=== PATIENT | male | born 1965 | race Hispanic/Latino ===

== ENCOUNTER 2018-07-04 14:26 | Inpatient (IN) | payer OTHER, SELFPAY ==
[2018-07-04 14:47] LABS: Arterial Blood Carboxyhemoglob 0.8 % (0-1.5); Blood Gas Oxyhemoglobin 96.6 % (94-97); Blood O2 Saturation 98.2 % (92-98.5)
[2018-07-04] MEDS ORDERED: NA CHLORIDE 0.9% 1,000 ML ONE (14:47)
[2018-07-04] MEDS ORDERED: METHYLPREDNISOLONE 125 MG INJ ONE (14:47)
[2018-07-04 14:56] LABS: Absolute Monocytes 0.8 K/uL (0.1-1.3); Absolute Neutrophil 3.5 K/uL (1.8-8.0); Basophils % 0.5 % (0-1.3); Eosinophils % 3.2 % (0-4.4); Lymphocytes % 30.7 % (15.3-44.8); MCH 29.6 pg (27.0-35.0); MCV 88.2 fL (80-100); MPV 9.3 fL (7.6-11.3); Monocytes % 11.6 % (3.3-12.3)
[2018-07-04 15:20] LABS: ALT/SGPT 48 U/L (12-78); AST/SGOT 20 U/L (15-37); Albumin 3.8 g/dL (3.4-5.0); Alkaline Phosphatase 115 U/L (45-117); BUN Blood Urea Nitrogen 18 mg/dL (7-18); Bicarbonate 28 mmol/L (21-32); Bilirubin Direct 0.1 mg/dL (0-0.2); Bilirubin Total 0.4 mg/dL (0.2-1.0); Glucose Level 139 mg/dL (74-106); Magnesium 2.2 mg/dL (1.8-2.4); NT PRO-BNP 33 pg/mL (<125); Potassium 4.2 mmol/L (3.5-5.1); Protein, Total 7.6 g/dL (6.4-8.2); Sodium Level 138 mmol/L (136-145); Troponin (Emerg Dept Use Only) < 0.02 ng/mL (0.0-0.045)
--- NOTE | 2018-07-04 15:23 | RAD REPORT ---
EXAM DESCRIPTION: Rika Single View07/04/2018 3:02 pm CLINICAL HISTORY: phosgene exposure/cough COMPARISON: none FINDINGS: The lungs appear clear of acute infiltrate. The heart is normal size IMPRESSION: No acute abnormalities displayed
--- NOTE | 2018-07-04 16:07 | ER ---
Nurse's Notes [facility] Name: Seth Jacobsen Age: 53 yrs Sex: Male : 1965 Arrival Date: 07/04/2018 Time: 14:32 Bed 2 Private MD: Diagnosis: Contact with and (suspected ) exposure to other hazardous substances-phosgene Presentation: 07/04 14:24 Presenting complaint: EMS states: pt was wearing a SCBA while at work and was exposed sv to Phosgene, pt took off the SBCA before they went to get decontaminated. Pt was decontaminated for 30 minutes and clothing removed. Pt had a positive color change of 150-300 ppm/min. Pt was placed on CPAP, BP 163/96 HR-75m RR-12, 100% CPAP. Transition of care: patient was not received from another setting of care. Onset of symptoms. Onset of symptoms was July 04, 2018 at 13:15. Risk Assessment: Do you want to hurt yourself or someone else? Patient reports no desire to harm self or others. Initial Sepsis Screen: Does the patient meet any 2 criteria? No. Patient's initial sepsis screen is negative. Does the patient have a suspected source of infection? No. Patient's initial sepsis screen is negative. Care prior to arrival: decontamination. 14:24 Method Of Arrival: EMS: [facility] 14:24 Acuity: TATIANA 2 sv Triage Assessment: 14:24 General: Appears in no apparent distress. comfortable, well developed, Pt currently in sv paper gown placed after decontamination.. Behavior is calm, cooperative, appropriate for age. Pain: Denies pain. EENT: Oral mucosa is moist. Throat is clear. Neuro: Level of Consciousness is awake, alert, obeys commands, Oriented to person, place, time, situation, Moves all extremities. Full function Speech is normal. Cardiovascular: Heart tones S1 S2 present Patient's skin is warm and dry. Pulses are 3+ in right radial artery and left radial artery Rhythm is sinus rhythm. Respiratory: Airway is patent Respiratory effort is even, unlabored, Respiratory pattern is regular, symmetrical, Breath sounds are clear bilaterally. GI: No signs and/or symptoms were reported involving the gastrointestinal system. : No signs and/or symptoms were reported regarding the genitourinary system. Derm: Skin is pink, warm \T\ dry. Musculoskeletal: No signs and/or symptoms reported regarding the musculoskeletal system. Historical: - Allergies: 14:38 PENICILLINS; sv - Home Meds: 14:38 None [Active]; sv - PMHx: 14:38 None; sv - Immunization history:: Adult Immunizations up to date. - Social history:: Smoking status: Patient/guardian denies using tobacco. - Family history:: not pertinent. - Ebola Screening: : No symptoms or risks identified at this time. Screenin:57 Abuse screen: Denies threats or abuse. Denies injuries from another. Nutritional sv screening: No deficits noted. Tuberculosis screening: No symptoms or risk factors identified. Fall Risk None identified. Assessment: 14:55 Reassessment: Patient appears in no apparent distress at this time. No changes from sv previously documented assessment. Patient and/or family updated on plan of care and expected duration. Pain level reassessed. Patient is alert, oriented x 3, equal unlabored respirations, skin warm/dry/pink. 15:05 Reassessment: Pt placed on BIPAP by Martha RUDD. sv 15:20 Reassessment: Patient appears in no apparent distress at this time. No changes from sv previously documented assessment. Patient and/or family updated on plan of care and expected duration. Pain level reassessed. Patient is alert, oriented x 3, equal unlabored respirations, skin warm/dry/pink. 16:10 Reassessment: Patient appears in no apparent distress at this time. No changes from sv previously documented assessment. Patient and/or family updated on plan of care and expected duration. Pain level reassessed. Patient is alert, oriented x 3, equal unlabored respirations, skin warm/dry/pink. 17:30 Reassessment: Patient appears in no apparent distress at this time. No changes from sv previously documented assessment. Patient and/or family updated on plan of care and expected duration. Pain level reassessed. Patient is alert, oriented x 3, equal unlabored respirations, skin warm/dry/pink. 17:45 Reassessment: Pt given food tray. sv 18:10 Reassessment: Patient appears in no apparent distress at this time. No changes from sv previously documented assessment. Patient and/or family updated on plan of care and expected duration. Pain level reassessed. Patient is alert, oriented x 3, equal unlabored respirations, skin warm/dry/pink. 19:41 Reassessment: Patient and/or family updated on plan of care and expected duration. Pain bb level reassessed. Patient is alert, oriented x 3, equal unlabored respirations, skin warm/dry/pink. report called to Ruchi ENGLAND for ICU bed 7 (overflow). 20:29 Reassessment: Patient appears in no apparent distress at this time. Patient and/or tl2 family updated on plan of care and expected duration. Pain level reassessed. Patient is alert, oriented x 3, equal unlabored respirations, skin warm/dry/pink. pt stable and ready for transport to unit. Vital Signs: 14:38 BP 164 / 98; Pulse 76; Resp 19; Temp 96.8(TE); Pulse Ox 99% on R/A; Weight 107.5 kg; sv Height 5 ft. 6 in. (167.64 cm); Pain 0/10; 15:11 BP 131 / 88; Pulse 72 MON; Resp 19; Pulse Ox 100% on BiPAP; sv 15:33 BP 129 / 96; Pulse 66; Resp 21; Pulse Ox 99% on BiPAP; jb1 16:10 BP 128 / 85; Pulse 69; Resp 17; Pulse Ox 100% on BiPAP; sv 16:34 BP 144 / 79; Pulse 69; Resp 13; Pulse Ox 98% on R/A; sv 17:00 BP 145 / 81; Pulse 73; Resp 20; Pulse Ox 98% on R/A; sv 18:07 BP 136 / 91; Pulse 77 MON; Resp 22; Pulse Ox 97% on R/A; sv 18:35 BP 167 / 93; Pulse 92; Resp 21; Pulse Ox 96% on R/A; sv 19:41 BP 141 / 77; Pulse 78; Resp 20 S; Pulse Ox 94% on R/A; bb 14:38 Body Mass Index 38.25 (107.50 kg, 167.64 cm) sv 15:11 Sinus Rhythm sv 18:07 Sinus Rhythm sv ED Course: 14:32 Patient arrived in ED. sv 14:33 Chidi Gaxiola MD is Attending Physician. shailesh 14:37 Triage completed. sv 14:38 Arm band placed on Patient placed in an exam room, on a stretcher. sv 14:41 EKG done, by cable splicing technician. reviewed by Chidi Gaxiola MD. at1 14:45 Initial lab(s) drawn, by me, sent to lab. ABG drawn. by RT staff, on room air. Inserted sv saline lock: 20 gauge in left antecubital area, using aseptic technique. Blood collected. Flushed left antecubital with 5 ml normal saline. 14:50 Patient has correct armband on for positive identification. Placed in gown. Bed in low sv position. Side rails up X2. nuclear monitoring technician on. Pulse ox on. NIBP on. Door closed. Warm blanket given. Head of bed elevated. 15:03 XRAY Chest (1 view) In Process Unspecified. EDMS 15:04 Pat Bains, TOMÁS is Primary Nurse. sv 15:10 BIPAP Sent. sv 17:17 Jennifer Rodriguez MD is Hospitalizing Provider. shailesh 19:07 Report given to Ciarra ENGLAND and Armida ENGLAND. sv 19:08 Primary Nurse role handed off by Pat Bains RN sv 19:42 No provider procedures requiring assistance completed. Patient admitted, IV remains in bb place. Administered Medications: 14:55 Drug: NS 0.9% 1000 ml Route: IV; Rate: 125 ml/hr; Site: left antecubital; sv 19:43 Follow up: IV Status: Infusion continued upon admission bb 20:29 Follow up: IV Status: Infusion continued upon admission tl2 14:55 Drug: SOLU-Medrol 125 mg Route: IVP; Site: left antecubital; sv 15:10 Follow up: Response: No adverse reaction sv Outcome: 16:07 ER care complete, transfer ordered by . shailesh 17:19 Decision to Hospitalize by Provider. [facility] 19:42 Admitted to ICU accompanied by tech, via wheelchair, room 7, with chart, Report called bb to Ruchi ENGLAND 19:42 Condition: stable 19:42 Instructed on the need for admit. 20:30 Patient left the ED. tl2 Signatures: Dispatcher [employer] EDMS Humberto Worley jb1 Pat Bains, RN Chidi Wade MD MD cha Ballard, Brenda, RN RN bb Yamilka Russell, junior financial analyst EKG Tat1 Ciarra Jerome RN RN tl2
--- NOTE | 2018-07-04 16:07 | EDPHYS ---
Physician Documentation [facility] Name: Seth Jacobsen Age: 53 yrs Sex: Male : 1965 Arrival Date: 07/04/2018 Time: 14:32 Bed 2 Private MD: ED Physician Chidi Gaxiola HPI: 07/04 14:36 This 53 yrs old Male presents to ER via Unassigned with complaints of Gas shailesh Exposure. 14:36 The patient has shortness of breath at rest. Onset: The symptoms/episode began/occurred shailesh just prior to arrival. Duration: The symptoms no symptoms now. The patient's shortness of breath has no apparent modifying factors. phosgene exposure. Associated signs and symptoms: The patient has no apparent associated signs or symptoms. Severity of symptoms: At their worst the symptoms were very mild in the emergency department the symptoms are unchanged. The patient has not experienced similar symptoms in the past. Historical: - Allergies: 14:38 PENICILLINS; sv - Home Meds: 14:38 None [Active]; sv - PMHx: 14:38 None; sv - Immunization history:: Adult Immunizations up to date. - Social history:: Smoking status: Patient/guardian denies using tobacco. - Family history:: not pertinent. - Ebola Screening: : No symptoms or risks identified at this time. ROS: 14:36 Constitutional: Negative for fever, chills, and weight loss, Eyes: Negative for injury, shailesh pain, redness, and discharge, ENT: Negative for injury, pain, and discharge, Neck: Negative for injury, pain, and swelling, Cardiovascular: Negative for chest pain, palpitations, and edema, Respiratory: Negative for shortness of breath, cough, wheezing, and pleuritic chest pain, Abdomen/GI: Negative for abdominal pain, nausea, vomiting, diarrhea, and constipation, Back: Negative for injury and pain, : Negative for injury, bleeding, discharge, and swelling, MS/Extremity: Negative for injury and deformity, Skin: Negative for injury, rash, and discoloration, Neuro: Negative for headache, weakness, numbness, tingling, and seizure, Psych: Negative for depression, anxiety, suicide ideation, homicidal ideation, and hallucinations, Allergy/Immunology: Negative for hives, rash, and allergies, Endocrine: Negative for neck swelling, polydipsia, polyuria, polyphagia, and marked weight changes, Hematologic/Lymphatic: Negative for swollen nodes, abnormal bleeding, and unusual bruising. Exam: 14:38 Constitutional: This is a well developed, well nourished patient who is awake, alert, shailesh and in no acute distress. Head/Face: Normocephalic, atraumatic. Eyes: Pupils equal round and reactive to light, extra-ocular motions intact. Lids and lashes normal. Conjunctiva and sclera are non-icteric and not injected. Cornea within normal limits. Periorbital areas with no swelling, redness, or edema. ENT: Nares patent. No nasal discharge, no septal abnormalities noted. Tympanic membranes are normal and external auditory canals are clear. Oropharynx with no redness, swelling, or masses, exudates, or evidence of obstruction, uvula midline. Mucous membranes moist. Neck: Trachea midline, no thyromegaly or masses palpated, and no cervical lymphadenopathy. Supple, full range of motion without nuchal rigidity, or vertebral point tenderness. No Meningismus. Chest/axilla: Normal chest wall appearance and motion. Nontender with no deformity. No lesions are appreciated. Cardiovascular: Regular rate and rhythm with a normal S1 and S2. No gallops, murmurs, or rubs. Normal PMI, no JVD. No pulse deficits. Respiratory: Lungs have equal breath sounds bilaterally, clear to auscultation and percussion. No rales, rhonchi or wheezes noted. No increased work of breathing, no retractions or nasal flaring. Abdomen/GI: Soft, non-tender, with normal bowel sounds. No distension or tympany. No guarding or rebound. No evidence of tenderness throughout. Back: No spinal tenderness. No costovertebral tenderness. Full range of motion. Male : Normal genitalia with no discharge or lesions. Skin: Warm, dry with normal turgor. Normal color with no rashes, no lesions, and no evidence of cellulitis. MS/ Extremity: Pulses equal, no cyanosis. Neurovascular intact. Full, normal range of motion. Neuro: Awake and alert, GCS 15, oriented to person, place, time, and situation. Cranial nerves II-XII grossly intact. Motor strength 5/5 in all extremities. Sensory grossly intact. Cerebellar exam normal. Normal gait. Psych: Awake, alert, with orientation to person, place and time. Behavior, mood, and affect are within normal limits. Vital Signs: 14:38 BP 164 / 98; Pulse 76; Resp 19; Temp 96.8(TE); Pulse Ox 99% on R/A; Weight 107.5 kg; sv Height 5 ft. 6 in. (167.64 cm); Pain 0/10; 15:11 BP 131 / 88; Pulse 72 MON; Resp 19; Pulse Ox 100% on BiPAP; sv 15:33 BP 129 / 96; Pulse 66; Resp 21; Pulse Ox 99% on BiPAP; jb1 16:10 BP 128 / 85; Pulse 69; Resp 17; Pulse Ox 100% on BiPAP; sv 16:34 BP 144 / 79; Pulse 69; Resp 13; Pulse Ox 98% on R/A; sv 17:00 BP 145 / 81; Pulse 73; Resp 20; Pulse Ox 98% on R/A; sv 18:07 BP 136 / 91; Pulse 77 MON; Resp 22; Pulse Ox 97% on R/A; sv 18:35 BP 167 / 93; Pulse 92; Resp 21; Pulse Ox 96% on R/A; sv 19:41 BP 141 / 77; Pulse 78; Resp 20 S; Pulse Ox 94% on R/A; bb 14:38 Body Mass Index 38.25 (107.50 kg, 167.64 cm) sv 15:11 Sinus Rhythm sv 18:07 Sinus Rhythm sv MDM: 14:33 Patient medically screened. [facility] 14:37 Data reviewed: vital signs, nurses notes, lab test result(s), EKG, radiologic studies. [facility] 07/04 14:35 Order name: Basic Metabolic Panel; Complete Time: 16:07 [facility] 07/04 14:35 Order name: CBC with Diff; Complete Time: 16:07 [facility] 07/04 14:35 Order name: LFT's; Complete Time: 16:07 [facility] 07/04 14:35 Order name: Magnesium; Complete Time: 16:07 [facility] 07/04 14:35 Order name: NT PRO-BNP; Complete Time: 16:07 [facility] 07/04 14:35 Order name: PT-INR; Complete Time: 16:07 [facility] 07/04 14:35 Order name: Troponin (emerg Dept Use Only); Complete Time: 16:07 [facility] 07/04 14:35 Order name: XRAY Chest (1 view); Complete Time: 16:07 [facility] 07/04 14:35 Order name: EKG; Complete Time: 14:36 [facility] 07/04 14:35 Order name: ABG; Complete Time: 16:07 [facility] 07/04 14:35 Order name: BIPAP [facility] 07/04 17:23 Order name: CONS Physician Consult [facility] 07/04 14:35 Order name: Cardiac monitoring; Complete Time: 14:53 [facility] 07/04 14:35 Order name: EKG - Nurse/Tech; Complete Time: 14:53 [facility] 07/04 14:35 Order name: IV Saline Lock; Complete Time: 14:53 [facility] 07/04 14:35 Order name: Labs collected and sent; Complete Time: 14:53 [facility] 07/04 14:35 Order name: O2 Per Protocol; Complete Time: 14:53 [facility] 07/04 14:35 Order name: O2 Sat Monitoring; Complete Time: 14:53 [facility] Administered Medications: 14:55 Drug: NS 0.9% 1000 ml Route: IV; Rate: 125 ml/hr; Site: left antecubital; sv 19:43 Follow up: IV Status: Infusion continued upon admission bb 20:29 Follow up: IV Status: Infusion continued upon admission tl2 14:55 Drug: SOLU-Medrol 125 mg Route: IVP; Site: left antecubital; sv 15:10 Follow up: Response: No adverse reaction sv Disposition: 07/04/18 17:19 Hospitalization ordered by Jennifer Rodriguez for Observation. Preliminary diagnosis is Contact with and (suspected ) exposure to other hazardous substances - phosgene. - Bed requested for Intensive Care Unit. - Status is Observation. tl2 - Condition is Stable. - Problem is new. - Symptoms have improved. UTI on Admission? No Signatures: Dispatcher [employer] [facility] Pat Bains RN RN Maria A Jacobo RN Chidi Zuluaga MD MD cha Knox, Taylor RN RN tl2 Armida Melvin RN bb Corrections: (The following items were deleted from the chart) 16:14 16:07 07/04/2018 16:07 Transfer ordered to [facility]. shailesh Diagnosis is Contact with and (suspected ) exposure to other hazardous substances. Reason for transfer: Higher level of care. Accepting physician is to alto. Condition is Stable. Problem is new. Symptoms have improved. shailesh 17:12 16:14 07/04/2018 16:07 Transfer ordered to [facility]. shailesh Diagnosis is Contact with and (suspected ) exposure to other hazardous substances - phosgene. Reason for transfer: Higher level of care. Accepting physician is to alto. Condition is Stable. Problem is new. Symptoms have improved. shailesh 19:21 17:19 Hospitalization Ordered by Jennifer Rdoriguez MD for Observation. Preliminary diagnosis dw is Contact with and (suspected ) exposure to other hazardous substances - phosgene. Bed requested for Telemetry/MedSurg (observation). Status is Observation. Condition is Stable. Problem is new. Symptoms have improved. UTI on Admission? No. shailesh 20:30 19:21 07/04/2018 17:19 Hospitalization Ordered by Jennifer Rodriguez MD for Observation. tl2 Preliminary diagnosis is Contact with and (suspected ) exposure to other hazardous substances - phosgene. Bed requested for Intensive Care Unit. Status is Observation. Condition is Stable. Problem is new. Symptoms have improved. UTI on Admission? No. dw
--- NOTE | 2018-07-04 19:10 | P.HP ---
Certification for Inpatient Patient admitted to: Observation With expected LOS: <2 Midnights Practitioner: I am a practitioner with admitting privileges, knowledge of patient current condition, hospital course, and medical plan of care. 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 Per patient, still wearing masks and had limited exposure to the gas. On the way also to the hospital, he was placed on BiPAP and has not suffered any complications so far. He is to be admitted for observation for any delayed pulmonary edema or symptoms from the phosphogene exposure. At the time of my exam, he was alert and oriented x3 and was in no acute distress. Allergies Penicillins Allergy (Verified 07/04/18 18:29) Rash Review of Systems General: Unremarkable Eyes: Unremarkable ENT: Unremarkable Respiratory: Unremarkable Cardiovascular: Unremarkable Gastrointestinal: Unremarkable Genitourinary: Unremarkable Musculoskeletal: Unremarkable Integumentary: Unremarkable Neurological: Unremarkable Lymphatics: Unremarkable Physical Examination - Physical Exam General: Alert, In no apparent distress HEENT: Atraumatic, PERRLA, Mucous membr. moist/pink, EOMI, Sclerae nonicteric Neck: Supple, 2+ carotid pulse no bruit, No LAD, Without JVD or thyroid abnormality Respiratory: Clear to auscultation bilaterally, Normal air movement Cardiovascular: Regular rate/rhythm, Normal S1 S2 Gastrointestinal: Normal bowel sounds, No tenderness Musculoskeletal: No tenderness Integumentary: No rashes Neurological: Normal gait, Normal speech, Normal strength at 5/5 x4 extr, Normal tone, Normal affect Lymphatics: No axilla or inguinal lymphadenopathy - Studies Laboratory Data (last 24 hrs) 07/04/18 14:45: PT 11.8, INR 1.00 07/04/18 14:45: WBC 6.6, Hgb 15.1, Hct 45.0, Plt Count 171 07/04/18 14:45: Sodium 138, Potassium 4.2, BUN 18, Creatinine 0.90, Glucose 139 H, Magnesium 2.2, Total Bilirubin 0.4, AST 20, ALT 48, Alkaline Phosphatase 115 Assessment and Plan - Problems (Diagnosis) (1) Chemical exposure Current Visit: Yes Status: Acute Plan: Admitted for observation with tele. Monitor for any delayed pulmonary symptoms BiPAP if needed Pulmonary consulted. Discharge Plan: Home Plan to discharge in: 24 Hours - Advance Directives Does patient have a Living Will: No Does patient have a Durable POA for Healthcare: No
[2018-07-04] MEDS ORDERED: ACETAMINOPHEN 500 MG TAB PO PRN (19:41)
[2018-07-04] MEDS ORDERED: ONDANSETRON 4 MG/2 ML VIAL IV PRN (19:41)
[2018-07-04 23:06] VITALS: BMI 31.7
[2018-07-05 04:58] LABS: Absolute Lymphocytes (CBC) 1.3 K/uL (0.7-4.9); Absolute Monocytes 0.2 K/uL (0.1-1.3); Absolute Neutrophil 10.8 K/uL (1.8-8.0); Basophils % 0.1 % (0-1.3); Hematocrit 47.6 % (39.6-49.0); Lymphocytes % 10.4 % (15.3-44.8); MCH 29.8 pg (27.0-35.0); MCV 87.3 fL (80-100); MPV 9.6 fL (7.6-11.3); Monocytes % 1.7 % (3.3-12.3); RBC Red Blood Cell Count 5.45 M/uL (4.33-5.43)
[2018-07-05 05:13] LABS: BUN Blood Urea Nitrogen 15 mg/dL (7-18); Bicarbonate 24 mmol/L (21-32); Glucose Level 195 mg/dL (74-106); Phosphorus 2.4 mg/dL (2.5-4.9); Sodium Level 137 mmol/L (136-145)
[2018-07-05 05:25] LABS: Blood Morphology Comment NOT SEEN (NOT SEEN); Platelet Estimate ADEQ; Urine White Blood Cell Casts OK
[2018-07-05 05:50] VITALS: TEMP 98
[2018-07-05] MEDS: POTASS/SODIUM PHOSPHATE 1 PKT POWD.PACK PO SCH ×3 (06:28→09:29)
[2018-07-05] MEDS ORDERED: POTASS/SODIUM PHOSPHATE 1 PKT POWD.PACK PO SCH (07:00)
--- NOTE | 2018-07-05 07:53 | EKG ---
Test Date: 2018-07-04 Test Time: 14:35:32 Vice Chancellor: FLASH MEASUREMENT RESULTS: Intervals: Rate: 68 NE: 178 QRSD: 100 QT: 384 QTc: 408 [place]: P: 31 NE: 178 QRS: 37 T: 37 INTERPRETIVE STATEMENTS: Normal sinus rhythm Normal ECG No previous ECG available for comparison Electronically Signed On 07-05-18 07:51:58 CDT by Ra Jalloh
[2018-07-05 12:15] VITALS: O2SAT 94
[2018-07-05 13:43] VITALS: BP 136/90
--- NOTE | 2018-07-05 17:44 | P.SSS ---
Patient History Date of Service: 07/05/18 Primary Care Provider: Anderson Lutz Reason for admission: Chemical exposure History of Present Illness: 53-year-old male with no past medical history admitted to the hospital for observation after being exposed to chemicals at work. Allergies Penicillins Allergy (Verified 07/04/18 18:29) Rash Home Medications: Methylprednisolone [Medrol dosepack] 4 mg PO DIRECTED #1 swapnil 07/05/18 - Past Medical/Surgical History Has patient received pneumonia vaccine in the past: No Diabetic: No Past Medical History: Reviewed- Non-Contributory Past Surgical History: Reviewed- Non-Contributory -: hernia - Family History Family History: Reviewed- Non-Contributory - Social History Smoking Status: Never smoker Alcohol use: Yes CD- Drugs: No Caffeine use: No Place of Residence: Home Review of Systems 10-point ROS is otherwise unremarkable Physical Examination - Vital Signs Temperature: 98 F Blood Pressure: 136/90 Pulse: 85 Respirations: 19 Pulse Ox (%): 98 - Physical Exam General: Alert, In no apparent distress HEENT: Atraumatic, PERRLA, Mucous membr. moist/pink, EOMI, Sclerae nonicteric Neck: Supple, 2+ carotid pulse no bruit, No LAD, Without JVD or thyroid abnormality Respiratory: Clear to auscultation bilaterally, Normal air movement Cardiovascular: Regular rate/rhythm, Normal S1 S2 Gastrointestinal: Normal bowel sounds, No tenderness Musculoskeletal: No tenderness Integumentary: No rashes Neurological: Normal gait, Normal speech, Normal strength at 5/5 x4 extr, Normal tone, Normal affect Lymphatics: No axilla or inguinal lymphadenopathy - Studies Laboratory Data (last 24 hrs) 07/05/18 04:39: Sodium 137, Potassium 4.0, BUN 15, Creatinine 0.70, Glucose 195 H, Phosphorus 2.4 L, Magnesium 2.0 07/05/18 04:39: WBC 12.3 H D, Hgb 16.2, Hct 47.6, Plt Count 197 07/04/18 14:45: PT 11.8, INR 1.00 07/04/18 14:45: WBC 6.6, Hgb 15.1, Hct 45.0, Plt Count 171 07/04/18 14:45: Sodium 138, Potassium 4.2, BUN 18, Creatinine 0.90, Glucose 139 H, Magnesium 2.2, Total Bilirubin 0.4, AST 20, ALT 48, Alkaline Phosphatase 115 - Diagnosis (Problem(s)) (1) Chemical exposure Onset Date: 07/05/18 Current Visit: Yes Status: Acute Treatment Summary: Overall during the hospital stay patient remained stable. 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 Patient was admitted for 24 of observation to ensure that no pulmonary edema has resulted from the initial exposure to the gas. Patient remained stable while here in the hospital. His respiratory status remained stable as well. Chest x-ray was clear of any pulmonary edema or any other complications from the chemical exposure. patient was then discharged home under stable condition. posion control and toxicology was consulted. Agreed with plan to discharge home. 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 New medication Medrol Dose Pack Diet: Regular Activity: Ad miranda
== END 2018-07-05 14:20 | disposition home or self-care (01) | DRG 923 ==
LOC: ER 14:26 → ERHOLD 17:19 → 3RD-ICU 19:33 → OBSVTOIN 07-05 11:01
PROVIDERS: ADMIT Family Medicine; ATTEND Family Medicine
DX: Z04.2 Encounter for examination and observation following work accident (principal); Z57.5 Occupational exposure to toxic agents in other industries; Z88.0 Allergy status to penicillin
CPT/HCPCS: 36415; 71045; 80048; 80076; 82805; 83735; 83880; 84100; 84484; 85025; 85610; 93005; 94660; 96361; 96374; 99285; J2930; J7030